=== PATIENT | female | born 1950 | race Caucasian/White ===

== ENCOUNTER → 2016-05-22 17:09 | Outpatient (CLI) | payer MEDICARE, OTHER ==
[2009-08-14 08:49] VITALS: BMI 39.9
== END | disposition home or self-care (01) ==
LOC: D.MAMMO 05-01 11:30
DX: Z12.31 Encounter for screening mammogram for malignant neoplasm of breast (principal)

== ENCOUNTER → 2016-11-17 06:34 | Outpatient (CLI) | payer MEDICARE, OTHER ==
--- NOTE | ~2016-11-17 | HEMODYNAMI ---
PATIENT:SAMIR MEHTA MEDICAL RECORD: [id number] : 50 LOCATION:[facility] ADMISSION DATE: 11/17/16 Generatedon:11/17/20168:32 Patient name: SAMIR MEHTA Patient #: [id number] SSN: DO B: 1950 Date of study: 11/17/2016 Page: Of Hemodynamic Procedure Report Patient Data Patient Demographics Procedure consent was obtained First Name: SAMIR Gender: Female Last Name: TYSON : 1950 Middle Initial: F Age: 66 year(s) Patient #: [id number] Race: Unknown Additional ID: [id number] Contact details [address]: [address] [place] [address] TRAIL State: [place] City: [place] Zip code: [address] Admission Admission Data Admission Date: 11/17/2016 Admission Time: 6:34 Procedure Procedure Types Cath Procedure Diagnostic Procedure CYDNEY Procedure Description Procedure Date Procedure Date: 11/17/2016 Procedure Start Time: 8:22 Procedure End Time: 8:32 Procedure Staff Name Function Lucas Spencer MD Performing Physician Tee Schaefer RN Nurse Parkre Rankin RT Monitor Good Bahena RT B2B Account Executive Procedure Data Cath Procedure Fluoroscopy Diagnostic fluoroscopy Total fluoroscopy Time: 0 time: 0 min min Diagnostic fluoroscopy Total fluoroscopy dose: 0 dose: 0 mGy mGy Contrast Material Contrast Material Type Amount (ml) Isovue 300 0 Estimated blood loss: 0 ml Procedure Complications No complications Procedure Medications Medication Administration Route Dosage Oxygen NC 2 l/min Versed I.V. 1 mg Hemodynamics Rest Heart Rate: 61 (bpm) Snapshots Pre Cath Intra NCS Post Cath Vital Signs Time Heart Resp SPO2 NIBP (mmHg) Rhythm Pain Sedation Rate (ipm) (%) Status Level (bpm) 8:15:54 66 17 98 130/75(111) NSR 0 (11) 10(A) , No pain 8:20:19 63 17 98 137/70(115) NSR 0 (11) 10(A) , No pain 8:24:49 70 17 96 138/66(95) NSR 0 (11) 10(A) , No pain 8:29:07 64 22 94 122/63(96) NSR 0 (11) 10(A) , No pain Medications Time Medication Route Dose Verified Delivered Reason Notes Effectivene ss by by 8:22:04 Oxygen NC 2 Lucas Oliveira Per l/min Tj Schaefer RN physician MD 8:24:24 Versed I.V. 1 mg Lucas Tee for Tj Schaefer RN sedation MD Procedure Log Time Note 7:50:21 Tee Schaefer RN sent for patient. Start room use. 8:03:21 Time tracking: Regular hours 8:03:27 Plan of Care:Hemodynamics will remain stable., Cardiac rhythm will remain stable., Comfort level will be maintained., Respiratory function will remain adequate., Patient/ family verbilizes understanding of procedure., Procedure tolerated without complication., Recovers from procedure without complications.. 8:03:52 [facility] Motor Vehicle Examiner present for CYDNEY. 8:04:38 Patient arrived from Pre/Post Procedure Room to [facility] 3. Patient remains on bed/stretcher for procedure. 8:04:40 Warm blankets applied, and laura hugger turned on for patient comfort. 8:04:40 Correct patient and procedure confirmed by team. 8:04:41 Signed procedure consent form obtained from patient. 8:04:42 ECG and BP/O2 sat monitors applied to patient. 8:09:18 Vital chart was started 8:09:20 Baseline sample Acquired. 8:11:22 Rhythm: sinus rhythm 8:11:24 Full Disclosure recording started 8:11:34 H&P Date Dictated: 11/11/2016 Within 30 days and on chart., H&P Addendum completed by physician on day of procedure. (MUST COMPLETE FOR ALL OUTPATIENTS). 8:11:35 Pre-procedure instructions explained to patient. 8:11:36 Pre-op teaching completed and patient verbalized understanding. 8:11:38 Family in patients room. 8:11:45 Patient NPO since Midnight. 8:11:47 Is the patient allergic to Iodine/contrast media? No. 8:11:50 Is patient on blood thinner?No 8:12:02 Patient diabetic? No. 8:12:06 Patient not . Patient is over age 55. 8:12:08 Previous problem with sedation/anesthesia? No ? 8:12:09 Snore? Yes 8:12:11 Sleep apnea? No 8:12:12 Deviated septum? No 8:12:12 Opens mouth fully? Yes 8:12:13 Sticks out tongue? Yes 8:12:15 Airway obstruction? No ? 8:12:18 Dentures? No ? 8:12:37 Lab results completed and on chart. 8:12:43 Alarms reviewed by Alisa Oseguera 8:14:51 Physician paged 8:16:04 Pt prepped for CYDNEY. 8:16:47 --------ALL STOP TIME OUT------ 8:16:48 Final Timeout: patient, procedure, and site verified with staff and physician. All members of the team are in agreement. 8:16:54 Physical assessment completed. ASA score P 2 - A patient with mild systemic disease as per Lucas Spencer MD. 8:17:01 Sedation plan: Local Anesthetic Lidocaine 8:22:04 Oxygen 2 l/min NC was administered by Tee Schaefer RN; Per physician; 8:22:49 Procedure started. 8:23:00 CYDNEY started. 8:24:24 Versed 1 mg I.V. was administered by Tee Schaefer RN; for sedation; 8:26:46 CYDNEY completed. 8:27:05 Procedure ended.(Physican Out) 8:27:15 Fluoroscopy time 00.00 minutes. 8:27:15 Fluoroscopy dose: 0 mGy 8:27:15 Flurop Dose total: 0 8:27:18 Contrast amount:Isovue 300 0ml. 8:28:33 Post-procedure physical assessment completed. ASA score P 2 - A patient with mild systemic disease as per Lucas Spencer MD. 8:28:34 Post procedure rhythm: unchanged. 8:28:41 Estimated blood loss: 0 ml 8:28:43 Post procedure instruction explained to patient.Patient verbalizes understanding. 8:28:44 Patient needs reinforcement of post procedure teaching. 8:29:27 Procedure and supply charges have been captured, reviewed, submitted and are correct. 8:29:30 Procedure Complication : No complications 8:31:53 Vital chart was stopped 8:31:54 See physician's report for complete and final results. 8:31:57 Report given to Pre/Post Procedure Room. 8:32:17 Patient transfered to Pre/Post Procedure Room with Stretcher. 8:32:24 Procedure ended. 8:32:24 Full Disclosure recording stopped 8:32:42 End room use (Document Last) Signature Audit Horatio Stage Time Signature Unsigned Intra-Procedure 11/17/2016 Good Bahena 8:32:54 AM RT(R) Signatures Monitor : Parker Rankin RT Signature : Date : Time : [facility] [address] [place] [address]
[2016-11-17 06:29] VITALS: BP 147/82; BMI 40.3
[2016-11-17 06:34] LABS: BASOPHILS 0.5 % (0-2); EOSINOPHILS 4.3 % (0-7); HEMATOCRIT 41.7 % (36.0-48.0); HEMOGLOBIN 13.7 g/dL (12-16); IMMATURE GRANULOCYTES 0.3 % (0-5); LYMPHOCYTES 16.5 % (15-50); MCH 30.3 pg (26.0-34.0); MCHC 32.9 g/dL (31.0-37.0); MCV 92.3 fL (80.0-100.0); MEAN PLATELET VOLUME 12.7 fL (7.4-10.4); MONOCYTES 6.4 % (2-11); PLATELET COUNT 195 10x3/uL (130-400); RBC 4.52 10x6/uL (4.00-5.40); RDW 15.3 % (11.5-14.5); WBC 9.9 10x3/uL (4.8-10.8)
[~2016-11-17 06:34] MED LIST: ALTACE10 MG PO; AZELASTINE137 MCG/0. NASAL; CATAPRES0.1 MG PO; EFFEXOR XR150 MG PO; LEVOXYL125 MCG PO; PRAVACHOL80 MG PO; ZYLOPRIM300 MG PO
[2016-11-17 06:41] LABS: INR 0.93 (0.85-1.17); PROTIME 12.3 SECONDS (11.6-15.0)
[2016-11-17 07:04] LABS: ANION GAP 14.9 mmol/L (8-16); CALCIUM 8.6 mg/dL (8.5-10.1); CARBON DIOXIDE 24.2 mmol/L (21.0-32.0); POTASSIUM - SERUM 4.1 mmol/L (3.5-5.1)
--- NOTE | 2016-11-17 09:08 | NUR ---
RESTING WITH EYES CLOSED, ROOM AIR. NSR RATE 62 WNO C/O CHEST PAIN. PULSES PALPX 4. AT SIDE.
--- NOTE | 2016-11-17 09:30 | NUR ---
NO DISTRESS NOTED VSS WITH CHEST PAIN DENIED. DSG TO L/CHEST CDI NO BLEEDING NO HEMATOMA NOTED. 0946 PIV REMOVED WITH DRESSING APPLIED. VERBAL AND WRITTEN DISCHARGE GONE OVER WITH PATIENT AND FAMILY. ALL VERBALIZED UNDERSTANDING
--- NOTE | 2016-11-17 09:51 | NUR ---
CHEST PAIN DENIED WITH DSG TO L/CHEST CDI VERBALIZED UNDERSTANDING OF INSTRUCTIONS. LEFT VIA WC TO PARKING FOR TRANSPORT HOME
--- NOTE | 2016-11-20 12:49 | EC ---
PATIENT:SAMIR MEHTA DATE OF SERVICE: 11/17/16 SEX: F MEDICAL RECORD: [id number] DATE OF : 50 LOCATION:D.[facility] AGE OF PATIENT: 66 ADMISSION DATE: 11/17/16 REFERRING PHYSICIAN: INTERPRETING PHYSICIAN: KIARA WILLIAMSON MD ECHOCARDIOGRAM REPORT ECHO CHARGES CLINICAL DIAGNOSIS: ECHOCARDIOGRAPHIC MEASUREMENTS (adult normal given) AC root (d.<3.7cm) cm LV Septum d (<1.2 cm> cm Valve Excursion cm LV Septum (systole) cm Left Atria (s.<4.0cm> cm LVPW d(<1.2cm) cm RV (d.<2.3cm) cm LVPW (sytole) cm LV diastole(<5.6CM) cm MV E-F(>70mm/sec) cm LV systole cm LVOT Diameter cm MV exc.(>10mm) cm Est.ejection fraction (50-75%) % Pericardial Effusion DOPPLER: LVIT cm/sec A cm/sec E cm/sec LA cm/sec RVSP mmHg LVOT cm/sec AOP1/2T m/s Asc. Ao cm/sec RVOT cm/sec RA cm/sec PA cm/sec AV Gradient Peak mmHg AV Mean mmHg AV Area cm MV Gradient Peak mmHg MV Mean mmHg MV Area cm COMMENTS: Buncher Operator: Charlie GAONAOE Arbor Press Operator: Romy Williamson TAPE# PACS DATE OF SERVICE: 11/17/2016 PROCEDURE: Transesophageal echocardiogram. PROCEDURE IN DETAIL: The patient was brought into cardiac catheterization lab in stable condition. Both groins were sterilely prepped and draped. The patient was placed in the left lateral position on the gurney and she was given Maalox and viscous lidocaine to anesthetize the oral mucosa. The patient was given 1 mg of Versed and then transesophageal echo probe was advanced to the point where we could see the cardiac structures in detail. ECHOCARDIOGRAM REPORT [id number] SAMIR MEHTA FINDINGS: 1. The left atrium appears to be mildly dilated. 2. The mitral valve is normal without significant mitral regurgitation. 3. The aortic valve is thickened and sclerotic. By planimetry, the valve area is approximately 1.1 cm-squared. The peak gradient was 2.8 meters per second squared. However, it should be noted that we were on a nearly 90 degree angle. 4. The left ventricle is showing mild left ventricular hypertrophy with ejection fraction of 65%. 5. The ascending aorta is in the mildly dilated area of 2.9-3.1 cm. IMPRESSION: The patient has grossly normal valvular structure except in the aortic valve where there is evidence of sclerosis with mild to moderate stenosis. By planimetry, the valve area is in the 1.1-1.2 cm-squared. We did have multiple excellent angles and projections on the mitral valve. Procedure was terminated without any complications. FINAL DIAGNOSIS: Moderate aortic stenosis. TRANSINT:[id number] Voice Confirmation ID: [id number] DOCUMENT ID: [id number] KIARA WILLIAMSON MD at 1249 CC: [id number] DICTATION DATE: 11/18/16 1234 STEEP TENDER: 11/18/16 1258 DEP CLI 11/17/16 [facility] [address] [place] [address]
== END | disposition home or self-care (01) ==
LOC: D.CATH 06:34
PROVIDERS: Internal Medicine Cardiovascular Disease
DX: R06.00 Dyspnea, unspecified (principal); R06.01 Orthopnea; R00.2 Palpitations; R42 Dizziness and giddiness; R07.9 Chest pain, unspecified; R01.1 Cardiac murmur, unspecified; I35.0 Nonrheumatic aortic (valve) stenosis; Z01.812 Encounter for preprocedural laboratory examination

== ENCOUNTER → 2016-12-10 16:27 | Outpatient (CLI) | payer MEDICARE, OTHER ==
[2016-11-17 06:29] VITALS: BMI 40.3
== END | disposition home or self-care (01) ==
LOC: D.LABREF 16:27
DX: R06.00 Dyspnea, unspecified (principal)

== ENCOUNTER → 2016-12-16 06:22 | Outpatient (CLI) | payer MEDICARE, OTHER ==
--- NOTE | ~2016-12-16 | HEMODYNAMI ---
PATIENT:SAMIR MEHTA MEDICAL RECORD: [id number] : 50 LOCATION:[facility] ADMISSION DATE: 12/16/16 Generatedon:12/16/20169:11 Patient name: SAMIR MEHTA Patient #: [id number] SSN: DO B: 1950 Date of study: 12/16/2016 Page: Of Hemodynamic Procedure Report Patient Data Patient Demographics Procedure consent was obtained First Name: SAMIR Gender: Female Last Name: TYSON : 1950 Middle Initial: F Age: 66 year(s) Patient #: [id number] Race: Unknown Additional ID: [id number] Contact details Address: [address] [place] [address] [employer] State: [place] City: [place] Zip code: [address] Admission Admission Data Admission Date: 12/16/2016 Admission Time: 6:22 Admit Source: Other Height (in.): 64 BSA: 2.12 (m2) Height (cm.): 162.56 BMI: 41.28 (kg/m2) Weight (lbs.): 240.5 Weight (kg.): 109.09 Lab Results Lab Result Date: 12/16/2016 Lab Result Time: 6:50 Biochemistry Name Units Result Min Max BUN mg/dl 14 --(--*-)-- 7 18 Creatinine mg/dl 1.2 --(---*)-- 0.6 1.3 CBC Name Units Result Min Max Hematocrit % 46.1 --(-*--)-- 42 54 Hemoglobin g/dl 15.2 --(-*--)-- 13.5 17.5 Procedure Procedure Types Cath Procedure Diagnostic Procedure Right Heart RHC and LHC w/Coronaries Miscellaneous Procedures Moderate Sedation up to 45 minutes Procedure Description Procedure Date Procedure Date: 12/16/2016 Procedure Start Time: 8:35 Procedure End Time: 9:10 Procedure Staff Name Function Lucas Spencer MD Performing Physician Senait Doe RT Scrub Kurtis Rose RN Nurse Parker Rankin RT Monitor Tee Schaefer RN Casting Operator Procedure Data Cath Procedure Fluoroscopy Diagnostic fluoroscopy Total fluoroscopy Time: 4.7 time: 4.7 min min Diagnostic fluoroscopy Total fluoroscopy dose: 487 dose: 487 mGy mGy Contrast Material Contrast Material Type Amount (ml) Isovue 300 41 Entry Location Entry Primary Successful Side Size Upsize Upsize Entry Closure Ordaz ccessful Closure Location (Fr) 1 (Fr) 2 (Fr) Remarks Device Remarks Femoral Right 5 Fr Exoseal artery Femoral Right 7 Fr Manual vein Short Compression Estimated blood loss: 5 ml Diagnostic catheters Device Type Used For End Catheter Placement Helix TherapeuticsciOrigami Logic 7Fr Procedure Phoenix Thermodilution chaz Cordis 5Fr JL 4.0 Procedure Catheter (MP) Cordis 5Fr 3DRC Catheter Procedure (MP) Cordis 5Fr Pigtail Procedure Catheter (MP) Procedure Complications No complications Procedure Medications Medication Administration Route Dosage 0.9% NaCl I.V. 100 ml/hr Oxygen NC 2 l/min Heparin Flush Bag added to field 2 bags (1000units/500ml NS) Lidocaine 2% added to field 20 Versed I.V. 2 mg Fentanyl I.V. 25 mcg Hemodynamics Rest BSA: 2.12 (m2) HGB: 15.2 (g/dl) O2 Consumption: Estimated: 190.11 (ml/min) O2 Co nsumption indexed: Estimated:89.67 (ml/min/m) Heart Rate: 61 (bpm) Oxygen Saturations Time Location Saturations Hgb (g/dl) O2 Content Use (%) (ml/L) 8:43 RV 73.7 8:44 RA 68.5 8:44 PCW 88.5 8:44 PA 67.7 Pressure Samples Time Site Value (mmHg) Purpose Heart Use Rate(bpm) 8:46 PCW 15/19(12) Snapshot 66 8:47 PA 31/14(22) Snapshot 67 8:50 RV 34/3,8 Snapshot 68 8:52 RA 4/-1(6) Snapshot 82 9:00 LV 131/-4,11 EDP 66 9:01 LV 134/-1,15 Snapshot 65 9:01 AO 115/58(81) Pullback 66 9:01 LV 144/8,15 Pullback 66 Gradients Valve Time Site 1 Site 2 Mean SEP/DFP Peak To Heart Use (mmHg) (sec/min) Peak Rate (mmHg) (bpm) Aortic 9:01 LV AO 13 20 29 66 144/8,15 115/58(81) Thermodilution Cardiac Output Time Cardiac Output (l/min) Use 8:49 3.39 l/m 8:50 3.54 l/m Calculations Vascular Value Indexed CO SV CO CI Resistance (dyne) values (ml/beat) (l/min) (l/(min*m)) TSVR 1865.8 3955.5 Thermal 52.9 3.46 1.6 SVR 1724.39 3655.71 TPVR 511.54 1084.46 PVR 236.65 501.7 PVR/SVR 0.14 Systolic Diastolic Ejection Regurgitation SW SWI TPVR/TSVR 0.27 Vol. Vol. (%) (%) Source Thermal Left 49 23.11 Right 11.19 5.28 Source Thermal Shunts (%) Right To 0.02 Left Content (ml/l) O2 Difference (ml/l) O2 MV 141.6 PV-PA(VA) O2 PA 139.95 PV-MV(VV) Valve P-P Mean Valve Index Valve Source Name Gradient Area Flow (cm2) Aortic 29 13 1.09 0.51 174.03 Thermal 29 13 Snapshots Thermal Samples Pre Cath Intra NCS Post Cath Vital Signs Time Heart Resp SPO2 etCO2 NIBP (mmHg) Rhythm Pain Sedation Rate (ipm) (%) (mmHg) Status Level (bpm) 8:24:30 66 18 95 0 138/76(110) NSR 0 (11) 10(A) , No pain 8:29:17 61 16 96 35.4 124/78(106) NSR 0 (11) 10(A) , No pain 8:34:38 61 12 97 31.6 140/71(94) NSR 0 (11) 10(A) , No pain 8:39:25 67 20 94 33.1 117/72(86) NSR 0 (11) 10(A) , No pain 8:44:12 64 17 96 30.8 114/64(93) NSR 0 (11) 9(A) , No pain 8:48:57 65 14 94 35.4 111/68(86) NSR 0 (11) 9(A) , No pain 8:53:43 64 15 97 36.9 112/59(80) NSR 0 (11) 9(A) , No pain 8:58:30 67 17 98 35.4 115/63(87) NSR 0 (11) 9(A) , No pain 9:03:19 64 18 99 33.1 109/59(82) NSR 0 (11) 9(A) , No pain 9:08:08 64 18 99 30.8 110/65(88) NSR 0 (11) 9(A) , No pain Medications Time Medication Route Dose Verified Delivered Reason Notes Effec tiveness by by 8:22:31 0.9% NaCl I.V. 100 Kurtis Kurtis Per ml/hr Rose ugalde RN RN 8:22:52 Oxygen NC 2 Kurtis Kurtis Per l/min Rose ugalde RN RN 8:23:07 Heparin Flush added 2 Kurtis Lucas used for Bag to bags Rose Spencer MD procedure (1000units/500ml field RN NS) 8:23:24 Lidocaine 2% added 20ml Kurtis Lucas for local to vial Rose Spencer MD anesthetic field RN 8:35:09 Versed I.V. 2 mg Kurtis Lucas for Rose Spencer MD sedation RN 8:35:19 Fentanyl I.V. 25 Kurtis Lucas for mcg Rose Spencer MD sedation wrapper sheeter Log Time Note 8:10:21 Tee Schaefer RN sent for patient. Start room use. 8:11:28 Informed consent obtained and on chart 8:11:57 Admit Source: Other 8:13:05 Diagnostic Cath status Elective 8:13:26 Time tracking: Regular hours 8:13:30 Plan of Care:Hemodynamics will remain stable., Cardiac rhythm will remain stable., Comfort level will be maintained., Respiratory function will remain adequate., Patient/ family verbilizes understanding of procedure., Procedure tolerated without complication., Recovers from procedure without complications.. 8:13:39 H&P Date Dictated: 12/01/2016 Within 30 days and on chart., H&P Addendum completed by physician on day of procedure. (MUST COMPLETE FOR ALL OUTPATIENTS). 8:14:47 Lab Result : Creatinine 1.2 mg/dl 8:14:47 Lab Result : BUN 14 mg/dl 8:14:47 Lab Result : Hematocrit 46.1 % 8:14:47 Lab Result : Hemoglobin 15.2 g/dl 8:14:53 Lab results completed and on chart. 8:15:16 Patient Weight : 240.5 lbs 8:15:25 Patient Height : 64 inches 8:22:07 Patient received from Pre/Post Procedure Room to CCL 1 Alert and oriented. Tansferred to table in Supine position. 8:22:08 Warm blankets applied, and laura hugger turned on for patient comfort. 8:22:08 Correct patient and procedure confirmed by team. 8:22:09 ECG and BP/O2 sat monitors applied to patient. 8:22:10 Pre-procedure instructions explained to patient. 8:22:11 Pre-op teaching completed and patient verbalized understanding. 8:22:12 Family in waiting room. 8:22:15 Patient NPO since Midnight. 8:22:30 Vital chart was started 8:22:31 0.9% NaCl 100 ml/hr I.V. was administered by Kurtis Rose RN; Per physician; 8:22:52 Oxygen 2 l/min NC was administered by Kurtis Rose RN; Per physician; 8:23:07 Heparin Flush Bag (1000units/500ml NS) 2 bags added to field was administered by Lucas Spencer MD; used for procedure; 8:23:24 Lidocaine 2% 20ml vial added to field was administered by Lucas Spencer MD; for local anesthetic; 8:30:12 Baseline sample Acquired. 8:30:16 Rhythm: sinus rhythm 8:30:20 Is the patient allergic to Iodine/contrast media? No. 8:30:21 Is patient on blood thinner?Yes 8:30:25 ACC The patient was administered the following blood thiners within the last 24 hours: ACCPlavix 8:30:26 Patient diabetic? No. 8:30:29 Previous problem with sedation/anesthesia? No ? 8:30:32 Snore? Yes 8:30:34 Sleep apnea? No 8:30:35 Deviated septum? No 8:30:36 Opens mouth fully? Yes 8:30:41 Sticks out tongue? Yes 8:30:44 Airway obstruction? No ? 8:30:45 Dentures? No ? 8:30:52 Pre procedure: right dorsailis pedis pulse 1+ Palpable, but thready & weak; easily obliterated 8:31:05 IV patent on arrival in left hand with 0.9% NaCl at KVO. 8:31:09 Right groin area was prepped with chlora-prep and draped in sterile fashion 8:31:10 Alarms reviewed by R. N. 8:31:13 Sharps counted by scrub and verified by R.N. 8:31:15 Use device set Femoral Dx 8:31:16 Tegaderm 4 x 4 opened to sterile field. 8:31:17 Acist Manifold opened to sterile field. 8:31:17 Acist Hand Control opened to sterile field. 8:31:18 Acist Syringe opened to sterile field. 8:31:18 Bag Decanter opened to sterile field. 8:31:19 Medline Cath Pack opened to sterile field. 8:31:19 Terumo 5Fr Holcombe Sheath opened to sterile field. 8:31:19 [facility] 260cm J .035 wire opened to sterile field. 8:31:21 Diagnostic Infinity 5Fr Multipack catheter opened to sterile field. 8:31:26 --------ALL STOP TIME OUT------ 8:31:26 Final Timeout: patient, procedure, and site verified with staff and physician. All members of the team are in agreement. 8:31:28 Right groin site verified by team. 8:31:32 Physical assessment completed. ASA score P 2 - A patient with mild systemic disease as per Lucas Spencer MD. 8:31:34 Sedation plan: IV Moderate Sedation Versed, Fentanyl 8:35:09 Versed 2 mg I.V. was administered by Lucas Spencer MD; for sedation; 8:35:19 Fentanyl 25 mcg I.V. was administered by Lucas Spencer MD; for sedation; 8:35:46 NanoVelos 4Fr Micropuncture Set ([id number]) opened to sterile field. 8:35:53 Procedure started. 8:35:53 Full Disclosure recording started 8:35:57 Local anesthetic to right femoral artery with Lidocaine 2% by Lucas Spencer MD.INITIAL ACCESS ONLY 8:35:59 Access obtained with 4Fr micropunture. 8:37:06 Merit Prelude Femoral Sheath (NO COST SUPPLY) opened to sterile field. 8:37:49 Zero performed for pressure channel P1 8:39:17 A 5 Fr sheath was inserted into the Right Femoral artery 8:39:28 A 7 Fr Short sheath was inserted into the Right Femoral vein 8:43:58 RV saturation: 73.7% 8:44:01 RA saturation: 68.5% 8:44:07 PCW saturation: 88.5% 8:44:12 PA saturation: 67.7% 8:44:50 A AudioSnaps 7Fr Phoenix Thermodilution chaz was advanced over the wire and used for Procedure. 8:49:35 Thermodilution performed using a Fink 131F7 7.0 Fr 19-22C 10.00 mL. Injectate temperature was 16.65 C, CO: 3.39 L/min, average CO: 3.46 L/min 8:50:20 Thermodilution performed using a Fink 131F7 7.0 Fr 19-22C 10.00 mL. Injectate temperature was 16.59 C, CO: 3.54 L/min, average CO: 3.46 L/min 8:53:18 Catheter removed. 8:53:48 A Cordis 5Fr JL 4.0 Catheter (MP) was advanced over the wire and used for Procedure. 8:54:36 LCA angiography performed. 8:56:03 Catheter exchanged over wire. 8:56:07 A Cordis 5Fr 3DRC Catheter (MP) was advanced over the wire and used for Procedure. 8:58:21 RCA angiography performed. 8:58:42 Catheter exchanged over wire. 8:58:59 A Cordis 5Fr Pigtail Catheter (MP) was advanced over the wire and used for Procedure. 9:02:07 LV hemodynamics recorded. 9:02:08 LV gram done using GALE 9:02:11 Injector settings: Ml/sec: 12, Volume: 8, 9:02:17 EF : 65 % 9:02:19 Catheter removed. 9:02:27 Cordis 5Fr Exoseal opened to sterile field. 9:02:51 Sheath removed intact; hemostasis achieved with Exoseal to the Right Femoral artery. 9:02:54 Procedure ended.(Physican Out) 9:06:16 Fluoroscopy time 04.70 minutes. 9:06:20 Fluoroscopy dose: 487 mGy 9:06:20 Flurop Dose total: 487 9:06:24 Contrast amount:Isovue 300 41ml. 9:06:25 Sharps counted by scrub and verified by R.N. 9:06:27 Insertion/operative site no bleeding no hematoma. 9:06:37 Sheath removed intact; hemostasis achieved with Manual Compression to the Right Femoral vein. 9:06:42 Post-op/insertion site Right Femoral artery dressed using a 4 x 4 and Tegaderm. 9:06:47 Post-op/insertion site Right Femoral vein dressed using a 4 x 4 and Tegaderm. 9:06:50 Post right femoral artery:stable, soft, clean and dry 9:06:56 Post right femoral vein:stable, soft, clean and dry 9:06:58 Post Procedure Pulses reassessed and unchanged 9:07:01 Post-procedure physical assessment completed. ASA score P 2 - A patient with mild systemic disease as per Lucas Spencer MD. 9:07:04 Post procedure rhythm: unchanged. 9:07:17 Estimated blood loss: 5 ml 9:07:18 Post procedure instruction explained to patient.Patient verbalizes understanding. 9:07:19 Patient needs reinforcement of post procedure teaching. 9:09:37 Procedure type changed to Cath procedure, Diagnostic procedure, Right Heart, RHC and LHC w/Coronaries, Miscellaneous Procedures, Moderate Sedation up to 45 minutes 9:10:14 Procedure and supply charges have been captured, reviewed, submitted and are correct. 9:10:16 Procedure Complication : No complications 9:10:18 Vital chart was stopped 9:10:19 See physician's report for complete and final results. 9:10:20 Report given to Pre/Post Procedure Room. 9:10:23 Patient transfered to Pre/Post Procedure Room with Stretcher. 9:10:25 Procedure ended. 9:10:25 Full Disclosure recording stopped 9:10:29 End room use (Document Last) Device Usage Item Name Manufacture Quantity Catalog Hospital Part Current Minima l Lot# / Number Charge Number Stock Stock Serial# Code Tegaderm 4 x 4 3M 1 [id number] [id number] [id number] 5 Acist Manifold Acist 1 43643 279010 717333 839686 5 Medical Systems Inc Acist Hand Acist 1 65600 279427 625345 309038 5 Control Medical Systems Inc Acist Syringe Acist 1 19066 383463 118591 136769 20 Medical Systems Inc Bag Decanter Microtek 1 2002S 820139 57410 581894 5 Medical Inc. Medline Cath Cardinal 1 [id number] 382049 89108 068859 5 Pack Health Terumo 5Fr Terumo 1 [id number] 321187 245382 555226 [address] [facility] [address] [facility] 1 401397 062860 925036 038311 30 J .035 wire Diagnostic Cardinal 1 PR2896 070383 39962 372050 30 Infinity 5Fr Health Multipack catheter Cook 4Fr Cook Medical 1 R81965 510050 237424 474545 5 Micropuncture Set ([id number]) Merit Prelude Merit 1 239639 956277 5 Femoral Sheath Medical (NO COST SUPPLY) Fink Fink 1 [id number] 954927 38997 637854 3 LifesciOrigami Logic Lifesciences 7Fr Phoenix Thermodilution chaz Cordis 5Fr JL Cardinal 1 078123 5 4.0 Catheter Health (MP) Cordis 5Fr Cardinal 1 496279 5 3DRC Catheter Health (MP) Cordis 5Fr Cardinal 1 092131 5 Pigtail Health Catheter (MP) Cordis 5Fr Cardinal 1 EX500 605479 436485 224537 10 Anturis Signature Audit Ottertail Stage Time Signature Unsigned Intra-Procedure 12/16/2016 Parker Rankin 9:11:44 AM RT(R) Signatures Monitor : Parker Rankin RT Signature : Date : Time : [facility] [address] [place] [address]
[2016-12-16 06:46] VITALS: BP 171/83; BMI 41.3
[2016-12-16 06:56] LABS: BASOPHILS 0.6 % (0-2); EOSINOPHILS 4.3 % (0-7); HEMATOCRIT 46.1 % (36.0-48.0); HEMOGLOBIN 15.2 g/dL (12-16); IMMATURE GRANULOCYTES 0.4 % (0-5); LYMPHOCYTES 15.9 % (15-50); MCH 30.6 pg (26.0-34.0); MCV 92.8 fL (80.0-100.0); MEAN PLATELET VOLUME 12.5 fL (7.4-10.4); MONOCYTES 6.9 % (2-11); NEUTROPHILS 71.9 % (40-80); RBC 4.97 10x6/uL (4.00-5.40); RDW 14.8 % (11.5-14.5); WBC 11.2 10x3/uL (4.8-10.8)
[2016-12-16 06:58] LABS: PLATELET COUNT 241 10x3/uL (130-400)
[2016-12-16 07:06] LABS: ANION GAP 14.6 mmol/L (8-16); CALCIUM 9.6 mg/dL (8.5-10.1); CARBON DIOXIDE 23.7 mmol/L (21.0-32.0); CREATININE - SERUM 1.2 mg/dL (0.6-1.3); POTASSIUM - SERUM 4.3 mmol/L (3.5-5.1)
--- NOTE | 2016-12-16 09:50 | NUR ---
0950 RESTING QUIETLY WITH VSS NO DISTRESS NOTED. 6 FR EXOSEAL R/GROIN CDI NO BLEEDING NO HEAMTOMA NOTED. 1015 CHEST PAIN DENIED WITH 6 FR EXOSEAL R/GROIN CDI NO BLEEDING NO HEMATOMA NOTED. INSTRUCTED PATIENT TO KEEP HEAD FLAT ON PILLOW WITH RLE STRAIGHT. PULSES PALPABLE
--- NOTE | 2016-12-16 10:48 | NUR ---
REPOSITIONED TO SITTING WITH HOB UP 30 DEGREES. R/GROIN CDI NO BLEEDING NO HEMATOMA NOTED. SANDWICH AND SODA TO BEDSIDE CHEST PAIN DENIED
--- NOTE | 2016-12-16 11:10 | NUR ---
PIV REMOVED WITH DRESSING APPLIED. 6 FR EXOSEAL REMAINS CDI NO BLEEDING NOTED. CHEST PAIN IS DENIED PATIENT GETS UP TO DRESS FOR DISCHARGE HOME
--- NOTE | 2016-12-16 11:23 | NUR ---
VERBAL AND WRITTEN DISCHARGE GONE OVER WITH PATIENT AND . R/GROIN CDI WITH CHEST PAIN DENIED. PATIENT LEFT VIA WC TO PARKING FOR TRANSPORT HOME
== END | disposition home or self-care (01) ==
LOC: D.CATH 06:22
PROVIDERS: Internal Medicine Cardiovascular Disease
DX: I35.0 Nonrheumatic aortic (valve) stenosis (principal); I25.10 Atherosclerotic heart disease of native coronary artery without angina pectoris; Z01.812 Encounter for preprocedural laboratory examination

== ENCOUNTER → 2017-05-04 16:36 | Outpatient (CLI) | payer MEDICARE, OTHER ==
[2016-12-16 06:46] VITALS: BMI 41.3
[2017-05-04 19:52] LABS: CHOL - HDL RATIO 4.3 ratio (2.3-4.1); LDL-HDL RATIO 2.6 ratio (1.5-3.5)
== END | disposition home or self-care (01) ==
LOC: D.LABREF 16:36
PROVIDERS: Internal Medicine Cardiovascular Disease
DX: E78.5 Hyperlipidemia, unspecified (principal)

== ENCOUNTER → 2017-05-25 18:02 | Outpatient (CLI) | payer MEDICARE, OTHER ==
[2016-12-16 06:46] VITALS: BMI 41.3
== END | disposition home or self-care (01) ==
LOC: D.MAMMO 11:00
DX: Z12.31 Encounter for screening mammogram for malignant neoplasm of breast (principal)

== ENCOUNTER → 2017-07-10 13:48 | Outpatient (CLI) | payer MEDICARE, OTHER ==
[2016-12-16 06:46] VITALS: BMI 41.3
--- NOTE | ~2017-07-10 | EC ---
PATIENT:SAMIR MEHTA DATE OF SERVICE: 07/10/17 SEX: F MEDICAL RECORD: [id number] DATE OF : 50 LOCATION:D[facility] AGE OF PATIENT: 67 ADMISSION DATE: 07/10/17 REFERRING PHYSICIAN: INTERPRETING PHYSICIAN: KIARA WILLIAMSON MD ECHOCARDIOGRAM REPORT ECHO CHARGES 4 ECHO COMPLETE Date: 07/10 CLINICAL DIAGNOSIS: /HTN/DYSPNEA ECHOCARDIOGRAPHIC MEASUREMENTS (adult normal given) AC root (d.<3.7cm) 3.1 cm LV Septum d (<1.2 cm> 1.2 cm Valve Excursion 0.8 cm LV Septum (systole) 1.8 cm Left Atria (s.<4.0cm> 3.0 cm LVPW d(<1.2cm) 1.2 cm RV (d.<2.3cm) 2.4 cm LVPW (sytole) 1.7 cm LV diastole(<5.6CM) 4.4 cm MV E-F(>70mm/sec) cm LV systole 2.0 cm LVOT Diameter 1.7 cm MV exc.(>10mm) cm Est.ejection fraction (50-75%) % DOPPLER: LVIT cm/sec A 106 cm/sec E 90.0 cm/sec LA cm/sec RVSP 36.0 mmHg LVOT 132 cm/sec AOP1/2T m/s Asc. Ao 376 cm/sec RVOT 50.0 cm/sec RA cm/sec PA 89.0 cm/sec AV Gradient Peak 57.0 mmHg AV Mean 36.0 mmHg AV Area 0.8 cm MV Gradient Peak 6.1 mmHg MV Mean 2.3 mmHg MV Area cm COMMENTS: Shot Core Drill Operator: Charlie GAONAOE Decorating Kiln Operator: Romy Williamson TAPE# PACS Pericardial Effusion N DATE OF SERVICE: PROCEDURE: Transthoracic echocardiogram. FINDINGS: 1. Left ventricle has mild left ventricular hypertrophy. Inflow characteristics consistent with diastolic dysfunction. Ejection fraction is 60%. No wall motion abnormalities visible. 2. The right ventricle is normal size, normal function normal. 3. Aortic valve has thickened valve leaflets. There is moderate aortic ECHOCARDIOGRAM REPORT [id number] SAMIR MEHTA stenosis with peak gradient of 57 mmHg, a mean gradient of 36, and calculated valve area of 0.8 to 1.0. 4. The mitral valve appears to be grossly normal size, shape, structure and function. 5. The tricuspid valve is structurally normal. The RVSP is 36. There is no significant regurgitation. 6. The pericardium is normal. 7. The right atrium is normal. 8. The pulmonic valve is normal. CONCLUSIONS: The patient has evidence of hypertensive heart disease and moderate to severe aortic stenosis. TRANSINT:[id number] Voice Confirmation ID: [id number] DOCUMENT ID: [id number] KIARA WILLIAMSON MD at 1029 CC: [id number] DICTATION DATE: 07/14/17 08 SUPERVISOR FABRICATION DEPARTMENT: 07/14/17 1109 DEP CLI 07/10/17 [facility] [address] [place] [address]
[~2017-07-10 13:48] MED LIST changes: +ASPIRIN81 MG PO; +LISINOPRIL10 MG PO; +PACERONE200 MG PO; +PERCOCET 5-3251 TAB PO; +TOPROL XL25 MG PO
== END | disposition home or self-care (01) ==
LOC: D.ECHO 13:00
DX: I35.0 Nonrheumatic aortic (valve) stenosis (principal); I10 Essential (primary) hypertension; R06.00 Dyspnea, unspecified

== ENCOUNTER 2017-08-17 10:00 | Inpatient (IN) | payer MEDICARE, OTHER ==
[~2017-08-17] VITALS: Ht 162.6 cm; Wt 105.5 kg
--- NOTE | ~2017-08-17 | OP ---
PATIENT NAME: SAMIR MEHTA MEDICAL RECORD: [id number] :50 LOCATION:[facility] ADMISSION DATE:08/19/17 SURGEON: CHRIS DAWSON MD DATE OF OPERATION: 08/19/2017 SURGEON: Chris Dawson MD NUTRITIONIST: LORRAINE Rodgers OPERATION PERFORMED: Aortic valve replacement (21-mm Fink pericardial bioprosthesis). PREOPERATIVE DIAGNOSIS: Aortic stenosis. POSTOPERATIVE DIAGNOSIS: Aortic stenosis. ANESTHESIA: General endotracheal anesthesia. SPECIMENS: Aortic valve leaflets. COMPLICATIONS: None. CONDITION: Stable. DISPOSITION: CV ICU. BLOOD LOSS: Total cardiopulmonary bypass with Cell Saver retransfusion. OPERATIVE FINDINGS: 1. Transesophageal echocardiography confirmed significant calcification of all valve leaflets with aortic stenosis. Aortic valve area 0.3-0.5 by calculation and good contractility with no mitral regurgitation. Postoperatively, no significant perivalvular leak. 2. Severe calcification of the valve leaflets with calcification extending down from the annulus onto the anterior leaf of the mitral valve and fusion of right and left cusp. OPERATIVE INDICATION: Aortic stenosis, symptomatic. OPERATIVE SUMMARY IN DETAIL: The patient was brought to the operative suite. General anesthesia was obtained. The patient was prepped and draped. Midline median sternotomy incision was made. Subcutaneous tissue was divided by electrocautery. Sternum was divided with the saw. The hemostasis was assured. Pericardium was opened. Heparin was given. Aorta was cannulated. Dual stage venous cannula was inserted. The patient was placed on cardiopulmonary bypass. Retrograde cardioplegia cannula was inserted. The patient was cooled. Crossclamp was placed. Antegrade cardioplegia was given through a 14-gauge angiocatheter. Left ventricular vent was placed to the right superior pulmonary vein. Transverse aortotomy was performed. Valve was visualized with findings as above. Valve leaflets removed. Annulus debrided of calcium. Thorough irrigation undertaken while protecting the left main. Direct cardioplegia given into the right coronary ostia and intermittent retrograde at 20-minute intervals. The valve was sized appropriately and pledgeted. Valve sutures were placed from the ventricular to the aortic side through the valve sewing ring. The valve was carefully lowered into place. Inspecting through the valve, all OPERATIVE REPORT [id number] SAMIR MEHTA the pledgets seated well and the valve seated well. The aortotomy was closed. With the patient in steep Trendelenburg position, left ventricular apex was de-aired and then the crossclamp was removed. The aortic root vent site was oversewn. The patient resumed spontaneous rhythm. Left ventricular vent was removed. Site was oversewn with a pledgeted suture. The retrograde cannula was removed and the site was oversewn. Atrial and ventricular pacing wires were placed. The patient was weaned from cardiopulmonary bypass and was stable. The patient was decannulated. Cannula sites were oversewn. Protamine was given. Thorough irrigation was undertaken. Hemostasis was assured. Ventricular pacing wires were placed. Drains were placed in the mediastinum and just below the sternum. Pericardial fat was loosely reapproximated. Sternum was closed with wires. Fascia was closed. Subcutaneous tissue was closed. Skin was closed. Dermabond was placed. Needle and sponge counts were reported as correct and the patient was taken to the ICU in stable condition. TRANSINT:[id number] Voice Confirmation ID: [id number] DOCUMENT ID: [id number] CHRIS DAWSON MD at 1002 CC: SIMONA HEATON [id number] DICTATION DATE: 08/19/17 1234 CHILD WELFARE MANAGER: 08/19/17 1342 ADM IN [facility] [address] [place] [address]
--- NOTE | ~2017-08-17 | TEE ---
PATIENT:SAMIR MEHTA MEDICAL RECORD: [id number] LOCATION:[place] [address] AGE OF PATIENT: 67 ADMISSION DATE: 08/19/17 SEX: F REFERRING PHYSICIAN: INTERPRETING PHYSICIAN: KIARA WILLIAMSON MD TRANSESOPHAGEAL ECHOCARDIOGRAM Date: 08/19/17 CYDNEY CHARGE Y INDICATIONS: AVR PREMEDICATIONS: PATIENT'S RESPONSE PROCEDURE DOPPLER MEASUREMENTS: LVIT LA PA RA LVOT RVOT Asc. Ao AV Gradient Peak 30.0 AV Mean AV Area 0.3 MV Gradient Peak MV Mean MV Area INTERPRETATION: LVd: 3.6 cm LVs: 1.7 cm Doppler: 2-D: COLOR FLOW DOPPLER NORMAL SALINE STUDY: MISCELLANOUS: DIAGNOSIS: PLAN: Electronic Parts Salesperson:4 Dr. Williamson Pipe Threader: Charlie DAO COMMENTS: DATE OF SERVICE: PROCEDURE: Transesophageal echocardiogram, intraoperative. FINDINGS: 1. Left ventricle shows left ventricular hypertrophy. There is mild mitral regurgitation. There is mild tricuspid regurgitation. There is pacer artifact transversing into the right ventricle. 2. Aortic valve is thickened. LV function was normal. There is evidence of TRANSESOPHAGEAL ECHOCARDIOGRAM REPORT [id number] SAMIR MEHTA aortic stenosis and mild aortic insufficiency. Status post replacement showed excellent valvular function, no obvious perivalvular leaks. TRANSINT:[id number] Voice Confirmation ID: [id number] DOCUMENT ID: [id number] at 0956 CC: [id number] DICTATION DATE: 08/20/17 0804 SUSTAINABLE DESIGN COORDINATOR: 08/20/17 0847 ADM IN [place] [id number] [place] [address]
--- NOTE | ~2017-08-17 | HP ---
PATIENT: SAMIR MEHTA MEDICAL RECORD: [id number] ACCOUNT: [id number] LOCATION:[facility] : 50 ADMISSION DATE: 08/17/17 HISTORY AND PHYSICAL EXAMINATION NameSAMIR MEHTA (67yo, F) ID# [id number]. Date/Time07/29/2017 10:[id number]/1951Service Dept.NPP_[facility] ClinicProviderQUIANA DAWSON MDInsuranceMed Primary: [place]) Insurance # : [id number] Referring Provider Name : TIFFANIE KOVACS Employer Name : RETIRED Med Secondary: [employer] (MEDICARE SUPPLEMENT) Insurance # : [id number] Referring Provider Name : TIFFANIE KOVACS Employer Name : RETIRED Prescription: CMX - Member is eligible. Chief Complaint Aortic insufficiency AORTIC STENOSIS Patient's Care Team Referring Provider (): TIFFANIE KOVACS: [address] [place] [phone], , Senior Controls Analyst: KIARA WILLIAMSON MD Patient's Pharmacies [facility] [address] [place] [address] [place] [id number], , Vitals BP:136/94 sitting R arm 07/29/2017 11:20 am 134/90 sitting L arm 07/29/2017 11:21 amHR:68/MURMUR 07/29/2017 11:22 amHt:5 ft 5 in 07/29/2017 11:19 amWt:225 lbs 07/29/2017 11:19 amBMI:37.4 07/29/2017 11:19 amAllergies Reviewed Allergies PENICILLINSMedications Reviewed Medications allopurinol 300 mg lygotb89/17/18 filledCaremarkazelastine 137 mcg (0.1 %) nasal spray zutkvnk08/27/17 filledCaremarkcloNIDine HCl 0.1 mg gyxkdf41/04/18 filledCaremarkdiclofenac sodium 75 mg tablet,delayed cihbwia75/30/17 filledCaremarkfluticasone 50 mcg/actuation nasal spray,bealsuaetj34/27/17 filledCaremarklevoFLOXacin 500 mg lyeywr30/30/17 filledCaremarklevothyroxine 100 mcg /23/18 filledCaremarklevothyroxine 112 mcg acvehc46/21/18 filledCaremarklevothyroxine 125 mcg deqzkl75/06/17 filledCaremarklevothyroxine 137 mcg egfgsu51/27/17 filledCaremarklisinopril 10 mg eqbovm23/01/18 filledCaremarkpravastatin 80 mg /17/18 filledCaremarkramipril 10 mg weodjur13/29/17 filledCaremarkvenlafaxine ER 150 mg capsule,extended release 24 hr04/25/17 filledCaremarkVitamin D3 2,000 unit capsule Take by oral route.07/28/17 Fátima Del Castillo Reviewed Problems Hypothyroidism Disorder of thyroid gland Dyspnea Hypertensive disorder Hyperlipidemia Aortic valve stenosis Family History HISTORY AND PHYSICAL [id number] SAMIR MEHTA Reviewed Family History Mother- Mitral valve disorderSister- Congestive heart failureBrother- Atrial fibrillationSocial History Reviewed Social History Cardiology and General Family history of heart disease?: Y Smoking Status: Former smoker High Cholesterol: Y High blood pressure: Y Overweight: Y Diabetes: N General stress level: Medium Surgical History Reviewed Surgical History gallbladder hysterectomy cardiac cath 2017-clean [employer] History (not configured) Past Medical History Reviewed Past Medical History Dizzy Spells: Y Heart Murmur: Y High Blood Pressure: Y Hyperlipidemia: Y Hypertension: Y Shortness of Breath: Y Documents for Discussion N/A Screening None recorded. HPI Fatigue Reported by patient. Quality: continuous; symptoms worse during the day Severity: normal sleep patterns; normal activity; same Duration: constant; symptoms lasting over 2 weeks Timing: gradual Context: symptoms do not improve on weekends/vacations Modifying Factors: no new stressors in life Associated Symptoms: no drug/alcohol withdrawal; no depression; no anxiety; no sleep disturbances; periods of not breathing (apnea) have not been observed referral for aortic stenosis with worsening gradient by echocardiogram 3 years history of dyspnea, minimal activity including recent Beach trip with a congregation group Near syncope but denies angina Cardiac catheterization December 2016 without significant coronary artery disease ROS Additionally reports: as reviewed in the chart with the patient ROS as noted in the HPI Physical Exam Patient is a 67-year-old female. Constitutional: General Appearance well nourished and developed and HISTORY AND PHYSICAL [id number] SAMIR MEHTA healthy-appearing. Level of Distress NAD. Ambulation ambulating normally. Cardiovascular: Apical Impulse not displaced or no thrill. Heart Auscultation no rubs or gallops and RRR and murmur. Arterial Pulses 2+ bilateral and no femoral bruits. Edema no edema or varicosities. Lungs: Repiratory Effort no dyspnea. Percussion no hyperresonance or dullness or flatness. Auscultation no wheezing, rhonchi, or rales / crackles and breathing sounds normal, good air movement, and CTA except as noted. Abdomen: Bowl Sounds normal. Inspection and Palpation no tenderness, guarding, masses, or rebound tenderness and soft and non-distended. Liver non-tender and no hepatomegaly. Spleen non-tender and no splenomegaly. Hernia none palpable. Musculoskeletal System: Gait And Stance normal gait and stance. Digits and Nails normal nails and no cyanosis. Neurologic: Cranial Nerves grossly intact. Reflexes DTRs 2+ bilaterally throughout. Sensation grossly intact. Lymph Nodes: Lymph Nodes no cervical LAD, supraclavicular LAD, axillary LAD, or inguinal LAD. Eyes: Lids and Conjunctivae no discharge or pallor and non-injected. Pupils PERRLA. Cornea grossly intact. EOM EOMI. Lens clear. Sclera non-icteric. Neck: Neck no masses, enlarged lymph nodes, or carotid bruits and supple and trachea midline. Thyroid no enlargement or nodules and non-tender. Skin: Inspection and Palpation no rash, lesions, ulcers, jaundice, or abnormal nevi. Assessment / Plan 1. Aortic valve stenosis I35.0: Nonrheumatic aortic (valve) stenosis AORTIC VALVE STENOSIS: CARE INSTRUCTIONS Patient Instructions preadmission testing Discussion Notes discussed the rationale for aortic valve replacement, valve choice, risks, benefits, recovery, alternatives, and risks. consent given QUIANA DAWSON MD at 1006 CC: [id number] DICTATION DATE: 07/29/17 1050 FRUIT STUFFER: TIA 08/07/17 1142 PRE IN [facility] [address] [place] [address]
[~2017-08-17 10:00] MED LIST changes: -ASPIRIN81 MG PO; -LISINOPRIL10 MG PO; -PACERONE200 MG PO; -PERCOCET 5-3251 TAB PO; -TOPROL XL25 MG PO
[2017-08-17] MEDS ORDERED: LISINOPRIL10 MG PO (11:01)
[2017-08-17 12:12] LABS: EOSINOPHILS 3.5 % (0-7); HEMOGLOBIN 14.2 g/dL (12-16); IMMATURE GRANULOCYTES 0.4 % (0-5); MCH 30.5 pg (26.0-34.0); MCHC 32.3 g/dL (31.0-37.0); MCV 94.4 fL (80.0-100.0); MEAN PLATELET VOLUME 12.7 fL (7.4-10.4); MONOCYTES 9.3 % (2-11); NEUTROPHILS 68.8 % (40-80); PLATELET COUNT 209 10x3/uL (130-400); RBC 4.66 10x6/uL (4.00-5.40); RDW 14.4 % (11.5-14.5); WBC 9.3 10x3/uL (4.8-10.8)
[2017-08-17 12:23] LABS: APPEARANCE HAZY (CLEAR); BILIRUBIN NEGATIVE (NEGATIVE); COLOR YELLOW (YELLOW); GLUCOSE NEGATIVE (NEGATIVE); KETONE NEGATIVE (NEGATIVE); NITRITE NEGATIVE (NEGATIVE); PROTEIN NEGATIVE (NEGATIVE); UROBILINOGEN NORMAL (NORMAL)
[2017-08-17 12:24] LABS: BACTERIA MODERATE /hpf (NONE SEEN); EPITHELIAL CELLS 0-5 /hpf (0-5); MUCUS <1+ /lpf (NONE SEEN)
[2017-08-17 12:36] LABS: APTT 36.4 SECONDS (22.8-39.4); INR 0.96 (0.85-1.17); PROTIME 12.4 SECONDS (11.6-15.0)
[2017-08-17 12:41] LABS: ALBUMIN 3.6 g/dL (3.4-5.0); ANION GAP 11.8 mmol/L (8-16); BILIRUBIN - TOTAL 0.34 mg/dL (0.2-1.3); CALCIUM 9.1 mg/dL (8.5-10.1); CARBON DIOXIDE 32.2 mmol/L (21.0-32.0); PHOSPHOROUS 4.7 mg/dL (2.5-4.9); PROTEIN - SERUM 6.9 g/dL (6.4-8.2); T4 THYROXIN - FREE 1.22 ng/dL (0.76-1.46); THYROID STIMULATING HORMONE 0.84 uIU/mL (0.36-3.74); URIC ACID 3.8 mg/dL (2.6-7.2)
[2017-08-19] VITALS (50 sets, daily range): BP systolic 95–156; BP diastolic 44–81; BMI 38.7; BMI 40.9
[2017-08-20] VITALS (45 sets, daily range): BP systolic 120–158; BP diastolic 55–76; BMI 40.7
[2017-08-20 06:26] LABS: HEMATOCRIT 35.1 % (36.0-48.0); HEMOGLOBIN 11.1 g/dL (12-16); MCH 29.8 pg (26.0-34.0); MCHC 31.6 g/dL (31.0-37.0); MCV 94.4 fL (80.0-100.0); MEAN PLATELET VOLUME 13.2 fL (7.4-10.4); RBC 3.72 10x6/uL (4.00-5.40); RDW 14.7 % (11.5-14.5); WBC 19.9 10x3/uL (4.8-10.8)
[2017-08-20 06:54] LABS: ALBUMIN 2.8 g/dL (3.4-5.0); ANION GAP 12.2 mmol/L (8-16); BILIRUBIN - TOTAL 0.75 mg/dL (0.2-1.3); CALCIUM 7.7 mg/dL (8.5-10.1); CARBON DIOXIDE 24.2 mmol/L (21.0-32.0); POTASSIUM - SERUM 4.4 mmol/L (3.5-5.1); PROTEIN - SERUM 5.5 g/dL (6.4-8.2)
[2017-08-21] VITALS (24 sets, daily range): BP systolic 112–159; BP diastolic 53–88; Ht 162.6 cm; Wt 105.5 kg
[2017-08-21 06:21] LABS: HEMOGLOBIN 10.4 g/dL (12-16); MCH 30.3 pg (26.0-34.0); MCHC 32.5 g/dL (31.0-37.0); MCV 93.3 fL (80.0-100.0); RBC 3.43 10x6/uL (4.00-5.40); RDW 14.8 % (11.5-14.5); WBC 16.7 10x3/uL (4.8-10.8)
[2017-08-21 06:42] LABS: ALBUMIN 2.6 g/dL (3.4-5.0); ANION GAP 8.9 mmol/L (8-16); BILIRUBIN - TOTAL 0.82 mg/dL (0.2-1.3); CREATININE - SERUM 0.9 mg/dL (0.6-1.3); POTASSIUM - SERUM 3.9 mmol/L (3.5-5.1); PROTEIN - SERUM 5.6 g/dL (6.4-8.2)
[2017-08-22] VITALS (24 sets, daily range): BP systolic 98–135; BP diastolic 50–76
[2017-08-22 06:40] LABS: HEMATOCRIT 32.2 % (36.0-48.0); HEMOGLOBIN 10.3 g/dL (12-16); MCH 30.1 pg (26.0-34.0); MCV 94.2 fL (80.0-100.0); RBC 3.42 10x6/uL (4.00-5.40); RDW 14.9 % (11.5-14.5); WBC 16.8 10x3/uL (4.8-10.8)
[2017-08-22 06:49] LABS: ALBUMIN 2.4 g/dL (3.4-5.0); ANION GAP 10.4 mmol/L (8-16); BILIRUBIN - TOTAL 0.65 mg/dL (0.2-1.3); CALCIUM 8.4 mg/dL (8.5-10.1); POTASSIUM - SERUM 4.4 mmol/L (3.5-5.1); PROTEIN - SERUM 5.8 g/dL (6.4-8.2)
[2017-08-23] VITALS (23 sets, daily range): BP systolic 100–141; BP diastolic 53–75
[2017-08-23 05:59] LABS: HEMOGLOBIN 9.6 g/dL (12-16); MCH 29.9 pg (26.0-34.0); MCV 93.5 fL (80.0-100.0); MEAN PLATELET VOLUME 12.8 fL (7.4-10.4); RBC 3.21 10x6/uL (4.00-5.40); RDW 14.7 % (11.5-14.5); WBC 13.3 10x3/uL (4.8-10.8)
[2017-08-23 06:26] LABS: ALBUMIN 2.3 g/dL (3.4-5.0); ANION GAP 9.4 mmol/L (8-16); BILIRUBIN - TOTAL 0.48 mg/dL (0.2-1.3); CALCIUM 8.3 mg/dL (8.5-10.1); CARBON DIOXIDE 30.7 mmol/L (21.0-32.0); CREATININE - SERUM 0.9 mg/dL (0.6-1.3); POTASSIUM - SERUM 4.1 mmol/L (3.5-5.1); PROTEIN - SERUM 5.7 g/dL (6.4-8.2)
[2017-08-24] VITALS (24 sets, daily range): BP systolic 98–131; BP diastolic 51–73
[2017-08-24 04:57] LABS: HEMATOCRIT 30.9 % (36.0-48.0); HEMOGLOBIN 9.8 g/dL (12-16); MCH 29.9 pg (26.0-34.0); MCHC 31.7 g/dL (31.0-37.0); MCV 94.2 fL (80.0-100.0); MEAN PLATELET VOLUME 12.4 fL (7.4-10.4); RBC 3.28 10x6/uL (4.00-5.40); RDW 14.5 % (11.5-14.5); WBC 12.4 10x3/uL (4.8-10.8)
[2017-08-24 05:14] LABS: ALBUMIN 2.4 g/dL (3.4-5.0); ANION GAP 10.3 mmol/L (8-16); BILIRUBIN - TOTAL 0.48 mg/dL (0.2-1.3); CALCIUM 8.5 mg/dL (8.5-10.1); CARBON DIOXIDE 30.7 mmol/L (21.0-32.0)
[2017-08-25] VITALS (19 sets, daily range): BP systolic 91–137; BP diastolic 40–78
[2017-08-25 09:55] LABS: BASOPHILS 0.5 % (0-2); EOSINOPHILS 2.4 % (0-7); HEMATOCRIT 31.6 % (36.0-48.0); HEMOGLOBIN 10.4 g/dL (12-16); IMMATURE GRANULOCYTES 0.5 % (0-5); LYMPHOCYTES 7.4 % (15-50); MCH 30.4 pg (26.0-34.0); MCHC 32.9 g/dL (31.0-37.0); MCV 92.4 fL (80.0-100.0); MEAN PLATELET VOLUME 11.6 fL (7.4-10.4); MONOCYTES 8.1 % (2-11); NEUTROPHILS 81.1 % (40-80); PLATELET COUNT 187 10x3/uL (130-400); RBC 3.42 10x6/uL (4.00-5.40); RDW 14.4 % (11.5-14.5); WBC 10.5 10x3/uL (4.8-10.8)
[2017-08-25 10:11] LABS: ANION GAP 8.6 mmol/L (8-16); CARBON DIOXIDE 31.4 mmol/L (21.0-32.0)
[2017-08-26] VITALS (10 sets, daily range): BP systolic 99–123; BP diastolic 51–65
[2017-08-26] MEDS ORDERED: PACERONE200 MG PO (10:28)
[2017-08-26] MEDS ORDERED: PERCOCET 5-3251 TAB PO (10:34)
[2017-08-26] MEDS ORDERED: TOPROL XL25 MG PO (10:37)
[2017-08-26] MEDS ORDERED: ASPIRIN81 MG PO (10:40)
== END 2017-08-26 12:12 | disposition home or self-care (01) | DRG 219 ==
LOC: D.SDCHOLD 11:00 → D.CVICU 08-19 05:00 → D.SDCHOLD 08-19 05:00 → D.CVICU 08-19 10:27 → D.SDCHOLD 08-19 11:00 → D.CVICU 08-26 12:12
PROVIDERS: Thoracic Surgery (Cardiothoracic Vascular Surgery)
PROC: 5A1221Z Performance of Cardiac Output, Continuous (ICD-10-PCS; 2017-08-19)
PROC: 02RF08Z Replacement of Aortic Valve with Zooplastic Tissue, Open Approach (ICD-10-PCS; principal; 2017-08-19 07:30)
DX: I35.0 Nonrheumatic aortic (valve) stenosis (principal); I50.21 Acute systolic (congestive) heart failure; J98.11 Atelectasis; E03.9 Hypothyroidism, unspecified; R06.09 Other forms of dyspnea; E78.5 Hyperlipidemia, unspecified; F32.9 Major depressive disorder, single episode, unspecified; R09.02 Hypoxemia

== ENCOUNTER → 2017-09-09 12:01 | Outpatient (CLI) | payer MEDICARE, OTHER ==
[2017-08-20 10:27] VITALS: BMI 40.7
[~2017-09-09 12:01] MED LIST changes: +ASPIRIN81 MG PO; +LISINOPRIL10 MG PO; +PACERONE200 MG PO; +PERCOCET 5-3251 TAB PO; +TOPROL XL25 MG PO
[2017-09-09 12:31] LABS: HEMATOCRIT 38.5 % (36.0-48.0); HEMOGLOBIN 12.3 g/dL (12-16); MCH 29.6 pg (26.0-34.0); MCHC 31.9 g/dL (31.0-37.0); MCV 92.5 fL (80.0-100.0); MEAN PLATELET VOLUME 11.7 fL (7.4-10.4); RBC 4.16 10x6/uL (4.00-5.40); RDW 14.2 % (11.5-14.5); WBC 10.7 10x3/uL (4.8-10.8)
[2017-09-09 13:00] LABS: ALBUMIN 3.4 g/dL (3.4-5.0); ANION GAP 8.6 mmol/L (8-16); BILIRUBIN - TOTAL 0.49 mg/dL (0.2-1.3); CALCIUM 9.1 mg/dL (8.5-10.1); CARBON DIOXIDE 30.6 mmol/L (21.0-32.0); CREATININE - SERUM 1.2 mg/dL (0.6-1.3); POTASSIUM - SERUM 5.2 mmol/L (3.5-5.1); PROTEIN - SERUM 6.7 g/dL (6.4-8.2)
== END | disposition home or self-care (01) ==
LOC: D.LAB 09:00
PROVIDERS: Thoracic Surgery (Cardiothoracic Vascular Surgery)
DX: J91.8 Pleural effusion in other conditions classified elsewhere (principal); D64.9 Anemia, unspecified

== ENCOUNTER 2018-07-27 15:00 | Outpatient (CLI) | payer MEDICARE, OTHER ==
[2017-08-20 10:27] VITALS: BMI 40.7
== END 2018-07-27 15:30 | disposition home or self-care (01) ==
LOC: D.MAMMO 15:00
PROVIDERS: ATTEND Family Medicine
DX: Z12.31 Encounter for screening mammogram for malignant neoplasm of breast (principal)